=== PATIENT | female | born 1940 | race Caucasian/White ===

== ENCOUNTER → 2016-11-22 | Outpatient (CLI) | payer OTHER ==
[~2016-11-22] MED LIST: ASPEC81 PO; BEANO PO; BND25X PO; CALCIUM CITRATE PO; CHOND PO; COQ10 PO; FLV400 PO; GLUCOSAMINE PO; METHYLCELLULOSE PO; MULT-506 PO; NAPR1TAB9 PO; OMEG10007 PO; TRAM-10 PO; [UNRECOGNIZED DRUG - OTHER] PO
[2016-11-22 13:41] LABS: BLOOD UREA NITROGEN 25 mg/dl (7-18); BUN/CREATININE RATIO 33.8 (10-20); CALCIUM 9.3 mg/dl (8.5-10.1); CARBON DIOXIDE 29 mmol/L (21-32); CHLORIDE 101 mmol/L (98-107); CREATININE 0.73 mg/dl (0.60-1.20); GLUCOSE 115 mg/dl (70-99); POTASSIUM 3.7 mmol/L (3.5-5.1); SODIUM 137 mmol/L (136-145)
--- NOTE | 2016-11-27 10:54 | CODING QUERY MEDICAL NECESSITY ---
SUPPORTING DIAGNOSIS NEEDED A supporting diagnosis is required for the test/procedure performed on this patient in order for us to be reimbursed by the patient's insurance. Please provide a supporting diagnosis for the following test/procedure listed below next to the test name along with your signature. *If there is no additional diagnosis for this patient that would support the following test/procedure please document that below next to the test/procedure. Test(s)/Procedure(s) that require a supporting diagnosis: DOS 11/22 * Vitamin D DIAGNOSIS: Provider Signature: Date: Thank you Elana Tomlin [facility] Information Management Once completed, please kindly fax back to [phone] For questions please call [phone]
== END | disposition home or self-care (01) ==
LOC: C.LABBC 12:02
PROVIDERS: ATTEND Internal Medicine
DX: M85.80 Other specified disorders of bone density and structure, unspecified site (principal)

== ENCOUNTER → 2017-02-19 | Outpatient (CLI) | payer OTHER | END | disposition home or self-care (01) | LOC: C.PAPS 14:32 | PROVIDERS: ATTEND Obstetrics & Gynecology | DX: Z01.419 Encounter for gynecological examination (general) (routine) without abnormal findings (principal); N81.4 Uterovaginal prolapse, unspecified ==

== ENCOUNTER → 2017-05-14 | Outpatient (CLI) | payer OTHER ==
[2017-05-14 15:07] LABS: THYROID STIMULATING HORMONE 1.84 uIu/ml (0.300-4.500)
[2017-05-14 16:32] LABS: LYME DISEASE AB IGG NEG (NEG); LYME DISEASE AB IGM NEG (NEG)
--- NOTE | 2017-05-21 06:37 | CODING QUERY MEDICAL NECESSITY ---
SUPPORTING DIAGNOSIS NEEDED Moses PA, A supporting diagnosis is required for the test/procedure performed on this patient in order for us to be reimbursed by the patient's insurance. Please provide a supporting diagnosis for the following test/procedure listed below next to the test name along with your signature. *If there is no additional diagnosis for this patient that would support the following test/procedure please document that below next to the test/procedure. Test(s)/Procedure(s) that require a supporting diagnosis: * ([id number]) B12 VITAMIN LEVEL DIAGNOSIS: DATE OF SERVICE: 05/14/17 Provider Signature: Date: Thank you Patel [facility] Information Management Once completed, please kindly fax back to [phone] For questions please call [phone]
== END | disposition home or self-care (01) ==
LOC: C.LAB1850 13:01
PROVIDERS: ATTEND Physician Assistant Medical
DX: M79.1 Myalgia (principal); M85.80 Other specified disorders of bone density and structure, unspecified site; M19.90 Unspecified osteoarthritis, unspecified site; R07.9 Chest pain, unspecified

== ENCOUNTER 2024-05-18 01:41 | Inpatient (IN) ==
--- OUTSIDE RECORDS SUMMARY | 2024-05-18 01:48 | External Medical Summary | Summary of Care ---
Author Name Unknown Organization [facility] Address [address] [place] [address] Phone [phone] Care Team Providers Care Computer Numerical Control Programmer Name Role Phone Yovany Díaz MD Primary Care Provider [phone] Encounter Details Date Type Department Care Team (Late st Contact Info) Description 04/20/2024 Orders Only Outcomes Research Department [address], [place] [id number] Ne Keyes [facility] [facility] Other*[id number] Allergies Active Allergy Reactions Criticality Noted Date Comments Amoxicillin 07/08/2014 Rash Ampicillin Rash 06/08/2015 documented as of this encounter (statuses as of 04/20/2024) Medications Medication Sig Dispensed Refills Start Date End Date Status ASPIRIN 81 MG PO TABSIndications:Hyperte nsion goal BP (blood pressure) < 140/90 1 daily Active CITRUCEL 500 MG PO TABS 1 daily A ctive SENIOR MULTIVITAMIN PLUS PO TABSIndications:Osteopo rosis,DJD (degenerative joint disease), multiple sites 1 daily Active BENADRYL 25 MG PO CAPS 1 daily Ac tive BEANO MELTAWAYS PO TBDP 1 daily A ctive NAPROXEN SODIUM 220 MG PO CAPSIndications:DJD (degenerative joint disease), multiple sites 1 daily Active Cholecalciferol (VITAMIN D3) 400 UNITS Capsule Take 800 Units by mouth daily. Active Multiple Minerals-Vitamins (CALCIUM CITRATE +) TABSIndications:Osteopo rosis Take 2 Caps by mouth daily. 05/10/2016 Active alendronate (FOSAMAX) 70 MG TabletIndications:Osteo penia, senile Take 1 Tab by mouth once a week. with 8 oz. water 30 minutes before first meal of the day. Remain upright for 30 min after taking tablet. 13 Tab 3 05/10/2016 Active amLODIPine (NORVASC) 10 MG TabletIndications:Essen tial hypertension with goal blood pressure less than 140/90 Take 1 Tab by mouth daily. 90 Tab 3 05/10/2016 Active lisinopril (PRINIVIL) 5 MG TabletIndications:Essen tial hypertension with goal blood pressure less than 140/90 1 daily 90 Tab 3 05/10/2016 Active documented as of this encounter (statuses as of 04/20/2024) Active Problems Problem Noted Date Diagnosed Date Osteopenia, senile 11/16/2014 Hypertension goal BP (blood pressure) < 140/90 1 DJD (degenerative joint disease), multiple sites 07/08/2014 Family history of breast cancer in mother Overview: onset age 65, mets at age 77 documented as of this encounter (statuses as of 04/20/2024) Resolved Problems Problem Noted Date Diagnosed Date Resolved Date Osteoporosis 07/08/2014 11/16/2014 documented as of this encounter (statuses as of 04/20/2024) Immunizations Name Administration Dates Next Due Pneumococcal Conjugate Vacc, 13 Valent (Prevnar) 05/09/2015 Pneumococcal Polysaccharide PPV23 (Pneumovax) Seasonal Influenza, Split, IIV3, With Preserve, Inj 07/18/2015,07/22/2014 TDAP, Age 7 and older, IM (Adacel) 03/30/2008 Varicella Zoster Vaccine (Adult) 09/30/2006 documented as of this encounter Social History Tobacco Use Types Packs/Day Years Used Date Smoking Tobacco: Never Smokeless Tobacco: Never Alcohol Use Standard Drinks/Week Comments Yes 0 (1 standard drink = 0.6 oz pur e alcohol) occasionally wine with dinner Utilities Answer Date Recorded Do you have trouble paying y our heating, water, or electric bill? (Adult - for ages 18 years and over) Not on file 03/17/2024 Is your family able to pay t he heat, water, or electric bill? (Household - for ages 0-17 years) Not on file 03/17/2024 Does your family have access to good internet? (Household - for ages 0-17 years) Not on file 03/17/2024 Social Connections Answer Date Recorded How often do you feel lonely or isolated from those around you? (Adult - for ages 18 years and over) Not on file 03/17/2024 Sex and Gender Information Value Date Recorded Sex Assigned at Not on file Gender Identity Not on file Sexual Orientation Not on file documented as of this encounter Plan of Treatment Scheduled Orders Name Type Priority Associated Diagnoses Orde r Schedule MYCODE INITIAL ADULT Lab Routine [facility] Other*[id number] Expected: 04/20/2024 (Approximate), Expires: 05/10/2025 Health Maintenance Due Date Last Done Comments Albumin/Creatinine Ratio 1958 Zoster Vaccines (2 of 3) 11/25/2006 09/30/2006 GFR 11/10/2016 11/10/2015, 07/08/2014 Depression Screening 01/09/2017 01/10/2016 DTaP,Tdap,and Td Vaccines (2 - Td or Tdap) 03/30/2018 03/30/2008 DXA Scan 06/05/2019 06/05/2016 Pneumococcal Vaccine: 65+ Years (3 of 3 - PPSV23 or PCV20) 05/09/2020 05/09/2015, 04/30/2007 COVID-19 Vaccine (1 - 2022-2 4 season) 2023 Influenza Vaccine (FLU shot) (#1) 2024 07/18/2015, 07/22/2014 HPV (Gardasil) Vaccine Aged Out No lo nger eligible based on patient's age to complete this topic Hepatitis B Vaccine Aged Out No longe r eligible based on patient's age to complete this topic MENINGOCOCCAL (MENACTRA/MENVEO) Aged Out No longer eligible b ased on patient's age to complete this topic documented as of this encounter Medical Devices Not on filedocumented as of this encounter Visit Diagnoses Diagnosis [facility] Other*[id number] documented in this encounter Care Teams Computer Numerical Control Programmer Relationship Specialty Start Date End Date Yovany Díaz MD PCP - General Internal Medicine 12/26/16 documented as of this encounter
--- NOTE | 2024-05-18 01:59 | Emergency Department Note ---
History of Present Illness General Chief complaint: Illness Stated complaint: VOMITING,DIARRHEA,RECTAL BLEEDING Time Seen by Provider: 05/18/24 01:49 History of Present Illness Maximum Pain Intensity: 10 This 83-year-old female presents ER complaint of nausea, vomiting diarrhea and blood in the stool with lower abdominal cramping since 9:00 tonight. She is on well water. Patient denies recent travel, recent antibiotics, fever, chills, flulike illness, chest pain, dyspnea. She is on a baby aspirin. Home Medications Medication Instructions Recorded Confirmed Type aspirin 81 mg tablet,delayed 81 mg PO QAM 07/29/19 05/18/24 History release carboxymethylcellulose sodium 1 % 1 drops ophthalmic (eye) TID 07/29/19 05/18/24 History eye liquid gel drops (Refresh Liquigel) naproxen sodium 220 mg tablet 220 mg PO UD PRN Pain 07/29/19 05/18/24 History cholecalciferol (vitamin D3) 25 1,000 units PO BID 07/30/19 05/18/24 History mcg (1,000 unit) capsule methylcellulose (laxative) 500 mg 500 mg PO QAM 04/15/20 05/18/24 History tablet (Citrucel) calcium carbonate (Calcium 600) 600 mg PO QAM 10/31/21 05/18/24 History acetaminophen 650 mg 1,300 mg PO UD PRN Pain 08/14/22 04/06/24 History tablet,extended release cyanocobalamin (vitamin B-12) 500 500 mcg PO QAM 08/14/22 05/18/24 History mcg tablet (Vitamin B-12) ibuprofen 200 mg capsule 200 mg PO UD PRN Pain 08/14/22 05/18/24 History atorvastatin 10 mg tablet 10 mg PO HS #90 tabs 02/07/24 05/18/24 Rx alendronate 70 mg tablet (Fosamax) 70 mg PO .weekly #12 tabs 02/10/24 05/18/24 Rx amlodipine 10 mg tablet See Rx Instructions .Route 02/10/24 05/18/24 Rx .COMPLEX #90 tabs lisinopril 5 mg tablet See Rx Instructions .Route 02/10/24 05/18/24 Rx .COMPLEX #90 tabs Iron Tablet 9 mg PO QAM 03/09/24 04/06/24 History diclofenac sodium 1 % topical gel 2 g topical QID PRN Pain 04/06/24 05/18/24 History (Voltaren Arthritis Pain) Allergies Allergy/AdvReac Type Severity Reaction Status Date / Time amoxicillin Allergy Mild Rash Verified 04/06/24 11:28 ampicillin Allergy Mild Rash Verified 04/06/24 11:28 Penicillins Allergy Mild rash Verified 04/06/24 11:28 Past Med/Surg History Problem List (Updated 05/18/24 @ 04:22 by Ne Santiago PA-C) Acute GI bleeding (Acute) Colitis (Acute) Osteoporosis Vitamin D deficiency Cystocele #5 ring pessary with support replaced today 04/26/23 Vaginal discharge Onychomycosis Endometrial cancer (Chronic 01/30/23) Cervical stenosis (uterine cervix) Hematometra Thickened endometrium Enlarged uterus Post-menopausal bleeding Abdominal pain Pelvic mass Encounter for pre-operative examination Anemia Cerebral vascular disease Cervical radiculopathy Nocturnal leg cramps Breast cancer screening Osteoporosis, unspecified Hyperlipidemia LDL goal <70 (Chronic) Abnormal stress test (Chronic) Medical History History of endometrial cancer surgery and radiation History of endometrial biopsy 10/25/22 Presence of pessary IBS (irritable bowel syndrome) Age related osteoporosis Thyroid disease hx hypothyroid/hx med in remote hx Hyperlipidemia Adenomatous colon polyp HX HTN (hypertension) Cervical spondylosis limited rom - continues pt exercises Arthritis of multiple sites Surgical History Nausea and vomiting after administration of anesthetic agent S/P REINALDO-BSO (total abdominal hysterectomy and bilateral salpingo-oophorectomy) Dr. Cuevas [facility] 01/30/23 Hx of cataract extraction left/right History of colonoscopy History of surgical removal of ganglion cyst History of knee surgery hardware intact>right leg History of cholecystectomy History of appendectomy Family History Mother Breast cancer Uterine cancer Father Cardiac disorder Kidney stones Congestive heart failure Prostate cancer Brother No problems noted. Brother No problems noted. Grandfather (Maternal) No problems noted. Grandmother (Maternal) No problems noted. Denies family history of Ovarian cancer Diabetes Myocardial infarction Lung cancer Colorectal cancer Stroke Social History Smoking Status: Never smoker Second Hand Exposure: Yes (as a child); Do You Dip or Chew Tobacco: No; Hx Alcohol Use: Yes Alcohol type: beer, wine and hard liquor Alcohol Intake Frequency: 2-3 x/Week Alcohol Intake Frequency Comment: 3 drinks a wk Preferred Language: Palauan Communication Ability: Effective Visual Impairment: Limited Hearing Ability: Normal Tubing Oiler Required: No Beliefs That Will Affect Care: None marital status: Current Living Situation: Alone current occupational status: retired 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; 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 [employer]; How many Children do You have: 2 Feels Safe at Home: Yes Childhood Exposure to Second-Hand Smoke: Yes (father and mother did smoke ) Diet: low salt caffeine: Yes (coffee and tea, occasional soda ) Dental Care, Regularly: Yes Physical Activity Frequency: 5-6 Times per Week Physical Activity Frequency Comment: walks Seatbelt Use: always Sunscreen Use: Yes Assistive Devices: Glasses Review of Systems A total of 10 systems reviewed and were otherwise negative Physical Exam Vital Signs Vital Signs - 24 hr 05/18/24 01:44 05/18/24 02:07 05/18/24 02:11 Temperature 36.3 C L Temperature Source Temporal Artery Scan Pulse Rate 83 67 67 Pulse Rate [Apical] Respiratory Rate 18 18 Respiratory Effort / Characteristics Respiratory Depth Respiratory Pattern Blood Pressure 153/74 H Blood Pressure [Right Arm] Blood Pressure Mean 100 Blood Pressure Mean [Right Arm] Pulse Oximetry 94 98 Oxygen Delivery Method Room Air Room Air Sepsis Recent Fever Within 48 Hours No Sepsis New/Unexplained Change in Mental Status No Sepsis Action Taken by Nursing No Action Required 05/18/24 02:12 05/18/24 04:00 Temperature Temperature Source Pulse Rate Pulse Rate [Apical] 73 71 Respiratory Rate 18 18 Respiratory Effort / Characteristics Non-Labored Spontaneous Non-Labored Spontaneous Respiratory Depth Normal Normal Respiratory Pattern Regular Regular Blood Pressure Blood Pressure [Right Arm] 155/86 H 148/86 H Blood Pressure Mean Blood Pressure Mean [Right Arm] 109 106 Pulse Oximetry 98 91 Oxygen Delivery Method Room Air Room Air Sepsis Recent Fever Within 48 Hours Sepsis New/Unexplained Change in Mental Status Sepsis Action Taken by Nursing VITALS: Vitals are noted on the nurse's note and reviewed by myself. Vital signs stable. GENERAL: Pleasant female with friend present, in no acute distress, nondiaphoretic, well-developed well-nourished. SKIN: Capillary reflex less than 2 seconds. HEENT: Normocephalic. PERRLA. EOMI. Nares patent. Mucous membranes moist. Neck is supple without nuchal rigidity. HEART: Regular rate and rhythm LUNGS: Clear to auscultation bilaterally without wheezes, rales or rhonchi. No retractions or accessory muscle use. ABDOMEN: Positive bowel sounds x 4. Normal tympanic percussion. Soft, tender to palpation lower abdomen, without masses or organomegaly. Lopez sign negative. No guarding or rebound tenderness. no CVA tenderness Rectal exam: Bright red blood in the vault, hemorrhoid present, learn to swim instructor present. MUSCULOSKELETAL: No gross musculoskeletal defects. NEURO: Patient was alert and oriented to person place and time. No focal neurological deficits. Course Administered Medications Discontinued Medications Acetaminophen (Ofirmev) 1,000 mg in 100 mls @ 400 mls/hr IV NOW STA Stop: 05/18/24 02:09 Last Infusion: 05/18/24 02:45 Dose: Infused Documented By: Admin: 05/18/24 02:14 Dose: 400 mls/hr Documented By: EMB Sodium Chloride (Nss) 250 mls @ 999 mls/hr IV .Q16M ONE Stop: 05/18/24 02:11 Last Infusion: 05/18/24 02:45 Dose: Infused Documented By: Admin: 05/18/24 02:16 Dose: 999 mls/hr Documented By: EMB Sodium Chloride (Nss) 250 mls @ 999 mls/hr IV .Q16M ONE Stop: 05/18/24 04:35 Last Infusion: 05/18/24 04:45 Dose: Infused Documented By: Admin: 05/18/24 04:26 Dose: 999 mls/hr Documented By: MARCELLE Ioversol (Optiray 320 100ml) 100 ml IV ONCE ONE Stop: 05/18/24 02:51 Last Admin: 05/18/24 02:50 Dose: 93 ml Documented By: PRIMITIVO Morphine Sulfate (Morphine Sulfate 2 Mg/Ml Carp) 2 mg IV NOW STA Stop: 05/18/24 04:21 Last Admin: 05/18/24 04:26 Dose: 2 mg Documented By: MARCELLE Morphine Sulfate (Morphine Sulfate 4 Mg/Ml 1 Ml Carp\Vial) 4 mg IV NOW STA Stop: 05/18/24 05:18 Last Admin: 05/18/24 05:20 Dose: 4 mg Documented By: MARCELLE Ondansetron HCl (Ondansetron Inj 2 Mg/Ml 2 Ml Vial) 4 mg IV ONE STA Stop: 05/18/24 01:50 Last Admin: 05/18/24 02:14 Dose: 4 mg Documented By: MARCELLE Medical Decision Making Medical Records Attestation: I reviewed the patient's medical records. Home Medications Current Medication List: was personally reviewed by me Laboratory Data Attestation: I reviewed the patient's lab results. 05/18/24 02:17 05/18/24 02:17 Lab Results 05/18/24 05/18/24 05/18/24 Range/Units 02:17 02:18 02:24 WBC 14.29 H (4.8-10.8) K/ul RBC 5.01 (4.20-5.40) M/uL Hgb 15.2 (12.0-16.0) g/dl POC Hgb 15.6 (12.0-16.0) g/dl Hct 45.2 (37.0-47.0) % POC Hct 46 (37-47) % MCV 90.2 (80.0-100.0) fL MCH 30.3 (25.0-34.0) pg MCHC 33.6 (32.0-36.0) g/dL RDW Std Deviation 43.8 (36.4-46.3) fL RDW Coeff of Ashley 13.3 (11.5-14.5) % Plt Count 177 (130-400) K/uL MPV 10.0 (9.4-12.4) fL Immature Gran % (Auto) 0.6 % Neut % (Auto) 90.0 % Lymph % (Auto) 4.4 % [place] % (Auto) 4.7 % Eos % (Auto) 0.1 % Baso % (Auto) 0.2 % Neut # (Auto) 12.86 H (1.40-6.50) K/uL Lymph # (Auto) 0.63 L (1.20-3.40) K/uL [place] # (Auto) 0.67 H (0.11-0.59) K/uL Eos # (Auto) 0.01 (0.00-0.50) K/uL Baso # (Auto) 0.03 (0.00-0.20) K/uL Immature Gran # (Auto) 0.09 (0.01-0.20) K/uL PT 10.6 (9.0-12.0) Seconds INR 1.0 (0.9-1.1) APTT 24 (21-31) Seconds PTT Ratio 0.9 POC Sodium 141 (135-144) mmol/L Sodium 140 (136-145) mmol/L POC Potassium 3.3 (3.3-5.0) mmol/L Potassium 3.4 L (3.5-5.1) mmol/L POC Chloride 104 (101-112) mmol/L Chloride 104 (98-107) mmol/L Carbon Dioxide 28 (21-32) mmol/L POC Total CO2 26 (24-31) mmol/L Anion Gap 8 (3-11) POC Anion Gap 16.0 (16-25) mmol/L POC BUN 25 H (7-18) mg/dl BUN 27 H (6-23) mg/dl Creatinine 0.68 (0.6-1.2) mg/dl POC Creatinine 0.6 (0.6-1.3) mg/dl Est Cr Clr Drug Dosing 61.2 ml/min Est GFR ( Amer) 95.1 ml/min Est GFR (Non-Af Amer) 82.0 ml/min BUN/Creatinine Ratio 39.7 H (10-20) Glucose 188 H (70-99(Fasting)) mg/dl POC Glucose (other) 184 H (70-99) mg/dl Calcium 9.7 (8.6-10.3) mg/dl POC Ioniz Calcium Haroldo 1.19 (1.12-1.32) mmol/l Magnesium 1.8 (1.7-2.4) mg/dl Total Bilirubin 0.4 (0.2-1.0) mg/dl AST 21 (13-39) U/L ALT 13 (7-52) U/L Alkaline Phosphatase 68 (34-104) U/L Troponin I High Sens 8.1 (0-14) pg/ml Total Protein 7.0 (6.0-8.3) gm/dl Albumin 4.3 (3.4-5.0) gm/dl Globulin 2.7 (2.5-4.0) gm/dl Albumin/Globulin Ratio 1.6 (0.9-2) Lipase 24 (11-82) U/L Stl C. cayetanensis PCR (NotDetected) Stool Rotavirus A PCR (NotDetected) Stl Adenov F 40/41 PCR (NotDetected) Stool Astrovirus (PCR) (NotDetected) Stool Campylobacter PCR (NotDetected) Stl C. diff Tox B Gene (Neg) Stool Cryptosporidium PCR (NotDetected) Stl E.coli Shiga Tox PCR (NotDetected) Stl Enterotoxigenic E PCR (NotDetected) Stool EPEC (PCR) (NotDetected) Stool EAEC (PCR) (NotDetected) Stl E. histolytica PCR (NotDetected) Stool Giardia Lamblia PCR (NotDetected) Stool Salmonella PCR (NotDetected) Stool Sapovirus (PCR) (NotDetected) Stl P. shigelloides PCR (NotDetected) Stl Shigella/EIEC PCR (NotDetected) St Y.enterocolitica PCR (NotDetected) Stool Vibrio (PCR) (NotDetected) Stl Vibrio cholerae PCR (NotDetected) Stl Norovirus GI/GII PCR (NotDetected) Blood Type O Negative Antibody Screen NEGATIVE 05/18/24 Range/Units 04:14 WBC (4.8-10.8) K/ul RBC (4.20-5.40) M/uL Hgb (12.0-16.0) g/dl POC Hgb (12.0-16.0) g/dl Hct (37.0-47.0) % POC Hct (37-47) % MCV (80.0-100.0) fL MCH (25.0-34.0) pg MCHC (32.0-36.0) g/dL RDW Std Deviation (36.4-46.3) fL RDW Coeff of Ashley (11.5-14.5) % Plt Count (130-400) K/uL MPV (9.4-12.4) fL Immature Gran % (Auto) % Neut % (Auto) % Lymph % (Auto) % [place] % (Auto) % Eos % (Auto) % Baso % (Auto) % Neut # (Auto) (1.40-6.50) K/uL Lymph # (Auto) (1.20-3.40) K/uL [place] # (Auto) (0.11-0.59) K/uL Eos # (Auto) (0.00-0.50) K/uL Baso # (Auto) (0.00-0.20) K/uL Immature Gran # (Auto) (0.01-0.20) K/uL PT (9.0-12.0) Seconds INR (0.9-1.1) APTT (21-31) Seconds PTT Ratio POC Sodium (135-144) mmol/L Sodium (136-145) mmol/L POC Potassium (3.3-5.0) mmol/L Potassium (3.5-5.1) mmol/L POC Chloride (101-112) mmol/L Chloride (98-107) mmol/L Carbon Dioxide (21-32) mmol/L POC Total CO2 (24-31) mmol/L Anion Gap (3-11) POC Anion Gap (16-25) mmol/L POC BUN (7-18) mg/dl BUN (6-23) mg/dl Creatinine (0.6-1.2) mg/dl POC Creatinine (0.6-1.3) mg/dl Est Cr Clr Drug Dosing ml/min Est GFR ( Amer) ml/min Est GFR (Non-Af Amer) ml/min BUN/Creatinine Ratio (10-20) Glucose (70-99(Fasting)) mg/dl POC Glucose (other) (70-99) mg/dl Calcium (8.6-10.3) mg/dl POC Ioniz Calcium Haroldo (1.12-1.32) mmol/l Magnesium (1.7-2.4) mg/dl Total Bilirubin (0.2-1.0) mg/dl AST (13-39) U/L ALT (7-52) U/L Alkaline Phosphatase (34-104) U/L Troponin I High Sens (0-14) pg/ml Total Protein (6.0-8.3) gm/dl Albumin (3.4-5.0) gm/dl Globulin (2.5-4.0) gm/dl Albumin/Globulin Ratio (0.9-2) Lipase (11-82) U/L Stl C. cayetanensis PCR Not Detected (NotDetected) Stool Rotavirus A PCR Not Detected (NotDetected) Stl Adenov F 40/41 PCR Not Detected (NotDetected) Stool Astrovirus (PCR) Not Detected (NotDetected) Stool Campylobacter PCR Not Detected (NotDetected) Stl C. diff Tox B Gene Negative Cdiff Gene (Neg) Stool Cryptosporidium PCR Not Detected (NotDetected) Stl E.coli Shiga Tox PCR Not Detected (NotDetected) Stl Enterotoxigenic E PCR Not Detected (NotDetected) Stool EPEC (PCR) Not Detected (NotDetected) Stool EAEC (PCR) Not Detected (NotDetected) Stl E. histolytica PCR Not Detected (NotDetected) Stool Giardia Lamblia PCR Not Detected (NotDetected) Stool Salmonella PCR Not Detected (NotDetected) Stool Sapovirus (PCR) Not Detected (NotDetected) Stl P. shigelloides PCR Not Detected (NotDetected) Stl Shigella/EIEC PCR Not Detected (NotDetected) St Y.enterocolitica PCR Not Detected (NotDetected) Stool Vibrio (PCR) Not Detected (NotDetected) Stl Vibrio cholerae PCR Not Detected (NotDetected) Stl Norovirus GI/GII PCR Not Detected (NotDetected) Blood Type Antibody Screen Imaging Data Attestation: I personally reviewed and interpreted this imaging study as follows: Radiologist's Impression: Abdomen/Pelvis CT 05/18/24 01:49 Exam(s): CT ABDOMEN + PELVIS With Contrast IV Amt: 93 ML OPTIRAY 320 EXAM: CT Abdomen and Pelvis With Intravenous Contrast CLINICAL HISTORY: lower abd pain, GI bleed. TECHNIQUE: Axial computed tomography images of the abdomen and pelvis with intravenous contrast. CTDI is 20.5 mGy and DLP is 884.65 mGy-cm. Automated exposure control was utilized for the study. A dose lowering technique was utilized adhering to the principles of ALARA. CONTRAST: Patient received 93 ML OPTIRAY 320 of IV contrast COMPARISON: No relevant prior studies available. FINDINGS: Lung bases: Unremarkable. No mass. No consolidation. ABDOMEN: Liver: Low attenuation foci in the liver which may be due to cysts but are too small to characterize. Gallbladder and bile ducts: Cholecystectomy. No ductal dilation. Pancreas: Unremarkable. No mass. No ductal dilation. Spleen: Unremarkable. No splenomegaly. Adrenals: Unremarkable. No mass. Kidneys and ureters: Unremarkable. No solid mass. No hydronephrosis. Stomach and bowel: Abnormal concentric mucosal thickening of the entire left-sided colon from the distal transverse colon distally with pericolonic fat stranding. Findings are most consistent with inflammatory or infectious colitis. No active intraluminal contrast extravasation. No bowel obstruction. PELVIS: Appendix: The appendix is not clearly delineated. No secondary findings to suggest acute appendicitis. Bladder: Unremarkable. No mass. Reproductive: Status post hysterectomy. ABDOMEN and PELVIS: Intraperitoneal space: Unremarkable. No free air. No significant fluid collection. Bones/joints: Multilevel degenerative changes throughout the thoracolumbar spine. No acute osseous abnormality. No dislocation. Soft tissues: Unremarkable. Vasculature: The aorta is normal in caliber without dissection or aneurysm. Atherosclerotic calcification noted distally. The superior mesenteric artery, celiac artery and LORNA are patent proximally without critical stenosis or occlusion. Lymph nodes: Unremarkable. No enlarged lymph nodes. IMPRESSION: Abnormal concentric mucosal thickening of the entire left-sided colon from the distal transverse colon distally with pericolonic fat stranding. Findings are most consistent with inflammatory or infectious colitis. No active intraluminal contrast extravasation to suggest a focal location for the GI bleed. No bowel obstruction. No pneumatosis or pneumoperitoneum. Electronically signed by: Zachariah Villanueva MD 05/18/24 04:16 AM [facility] Narrative Prior records/ancillary studies reviewed. Triage Nursing notes reviewed. Additional history obtained from the family. The patient's history was concerning for nausea, vomiting, diarrhea, and abdominal pain. Differential diagnosis: Etiologies such as gastroenteritis, food borne illness, infections, appendicitis, diverticulitis, inflammatory bowel disease, obstruction, GI bleed, biliary pathology, as well as others were entertained. Physical examination findings: As above. Abdominal examination revealed lower abdominal tenderness. Vital signs reviewed and revealed stable. ER treatment provided: IV hydration NSS. Zofran and Tylenol ordered Morphine IV On reassessment the patient felt better. Patient was tolerating p.o. intake. Diagnostics interpretation by me: EKG ordered for abdominal pain EKG: Normal sinus, poor baseline, left anterior fascicular block, rate of 66. Impression normal sinus rhythm poor baseline left anterior fascicular block independently interpreted myself The labs Independently Interpreted by myself revealed leukocytosis, stable H&H, hyperglycemia without DKA Negative C. difficile. Negative stool [employer] Imaging studies: CT as above Consultation: A consultation was placed with the hospitalist. The case was discussed and diagnostics were reviewed. The patient was evaluated in the ER for further treatment. This appears to be consistent with colitis who has been having rectal bleeding. Patient gave a stool sample here that was straight blood. This was sent for analysis. She was still in moderate amount of pain. Medicine was consulted and case is discussed. She will be evaluated for admission.. By the evaluation outlined above emergent etiologies such as appendicitis, diverticulitis, obstruction, cardiac sources, mesenteric ischemia, aortic pathology, inflammatory bowel disease, renal colic, PUD, biliary pathology, UTI, as well as others were deemed relatively unlikely. The pt informed about the findings as listed above. All questions were answered and pleased with the treatment. The chart was completed utilizing [employer] Speech voice recognition software. Grammatical errors, random word insertions, pronoun errors, and incomplete sentences are an occassional consequence of this system due to software limitations, ambient noise, and hardware issues. Any formal questions or concerns about the content, text, or information contained within the body of this dictation should be directly addressed to the physician marketing assistant for clarification. Impression & Plan Colitis, Acute GI bleeding Discharge Plan Visit Data Chief Complaint: Illness Stated Complaint: VOMITING,DIARRHEA,RECTAL BLEEDING ED Provider: Gabby Turcios ED Midlevel Provider: Ne Santiago Discharge Problem: Colitis, Acute GI bleeding Patient Disposition: Admitted As Inpatient Condition: Good Forms Stand Alone Forms: [facility] DNA Guide Prescriptions Prescriptions: No Action diclofenac sodium [Voltaren Arthritis Pain] 1 % gel 2 g topical QID PRN (Reason: Pain) Rx Instructions: apply to single elbow, wrist or hand; for hand includes palm/fingers/back of hand atorvastatin 10 mg tablet 10 mg PO HS Qty: 90 3RF alendronate [Fosamax] 70 mg tablet 70 mg PO .weekly Qty: 12 3RF amlodipine 10 mg tablet See Rx Instructions .ROUTE .COMPLEX Qty: 90 3RF Dose Instruction: TAKE 1 TABLET BY MOUTH ONCE DAILY Patient Comments: qpm Rx Instructions: TAKE 1 TABLET BY MOUTH ONCE DAILY lisinopril 5 mg tablet See Rx Instructions .ROUTE .COMPLEX Qty: 90 3RF Dose Instruction: TAKE ONE TABLET BY MOUTH DAILY Patient Comments: qam Rx Instructions: TAKE ONE TABLET BY MOUTH DAILY aspirin 81 mg tablet,delayed release (DR/EC) 81 mg PO QAM naproxen sodium 220 mg tablet 220 mg PO UD PRN (Reason: Pain) Refresh Liquigel 1 % drops, liquid gel 1 drops OP TID cholecalciferol (vitamin D3) 1,000 unit capsule 1,000 units PO BID Citrucel 500 mg tablet 500 mg PO QAM calcium carbonate [Calcium 600] 600 mg calcium (1,500 mg) tablet 600 mg PO QAM Patient Comments: calcium citrate ibuprofen 200 mg Capsule 200 mg PO UD PRN (Reason: Pain) acetaminophen 650 mg Tablet Extended Release 1,300 mg PO UD PRN (Reason: Pain) cyanocobalamin (vitamin B-12) [Vitamin B-12] 500 mcg Tablet 500 mcg PO QAM Iron Tablet 9 mg PO QAM Referrals Referrals: Tiffany Venegas DO [Primary Care Provider] -
[2024-05-18] MEDS: ACETAMINOPHEN 1,000 MG/100 ML VIAL IV STA (02:14)
[2024-05-18] MEDS: ONDANSETRON INJ 2 MG/ML 2 ML VIAL IV STA (02:14)
[2024-05-18] MEDS: SODIUM CHLORIDE 0.9% 250 ML IV ONE ×2 (02:16→04:26)
[2024-05-18 02:36] LABS: iSTAT Creatinine 0.6 mg/dl (0.6-1.3); iSTAT Hemoglobin 15.6 g/dl (12.0-16.0); iSTAT Ionized Calcium 1.19 mmol/l (1.12-1.32); iSTAT Potassium 3.3 mmol/L (3.3-5.0)
[2024-05-18 02:37] LABS: Basophils # (auto) 0.03 K/uL (0.00-0.20); Basophils % (auto) 0.2 %; Eosinophils # (auto) 0.01 K/uL (0.00-0.50); Eosinophils % (auto) 0.1 %; Hematocrit (blood only) 45.2 % (37.0-47.0); Hemoglobin 15.2 g/dl (12.0-16.0); Immature Granulocytes # (auto) 0.09 K/uL (0.01-0.20); Immature Granulocytes % (auto) 0.6 %; Lymphocytes # (auto) 0.63 K/uL (1.20-3.40); Lymphocytes % (auto) 4.4 %; Mean Corpuscular Hemoglobin 30.3 pg (25.0-34.0); Mean Corpuscular Hgb Conc 33.6 g/dL (32.0-36.0); Mean Corpuscular Volume 90.2 fL (80.0-100.0); Monocytes # (auto) 0.67 K/uL (0.11-0.59); Monocytes % (auto) 4.7 %; Neutrophils # (auto) 12.86 K/uL (1.40-6.50); Platelet Count 177 K/uL (130-400); RDW Coefficient of Variation 13.3 % (11.5-14.5); RDW Standard Deviation 43.8 fL (36.4-46.3); Red Blood Count 5.01 M/uL (4.20-5.40); White Blood Count 14.29 K/ul (4.8-10.8)
[2024-05-18] MEDS: OPTIRAY 320 100ml IV ONE (02:50)
[2024-05-18 02:53] LABS: Albumin Globulin Ratio 1.6 (0.9-2); Albumin Level 4.3 gm/dl (3.4-5.0); BUN Creatinine Ratio 39.7 (10-20); Bilirubin,Total 0.4 mg/dl (0.2-1.0); Calcium 9.7 mg/dl (8.6-10.3); Creatinine Clr Calc Pharmacy 61.2 ml/min; Est GFR (African American) 95.1 ml/min; Globulin 2.7 gm/dl (2.5-4.0); Magnesium 1.8 mg/dl (1.7-2.4); Potassium 3.4 mmol/L (3.5-5.1)
[2024-05-18 02:58] LABS: Troponin I High Sensitivity 8.1 pg/ml (0-14)
[2024-05-18 03:09] LABS: Partial Thromboplastin Ratio 0.9; Partial Thromboplastin Time 24 Seconds (21-31); Prothrombin Time 10.6 Seconds (9.0-12.0)
--- NOTE | 2024-05-18 04:17 | CT Scan Report ---
Exam(s): CT ABDOMEN + PELVIS With Contrast IV Amt: 93 ML OPTIRAY 320 EXAM: CT Abdomen and Pelvis With Intravenous Contrast CLINICAL HISTORY: lower abd pain, GI bleed. TECHNIQUE: Axial computed tomography images of the abdomen and pelvis with intravenous contrast. CTDI is 20.5 mGy and DLP is 884.65 mGy-cm. Automated exposure control was utilized for the study. A dose lowering technique was utilized adhering to the principles of ALARA. CONTRAST: Patient received 93 ML OPTIRAY 320 of IV contrast COMPARISON: No relevant prior studies available. FINDINGS: Lung bases: Unremarkable. No mass. No consolidation. ABDOMEN: Liver: Low attenuation foci in the liver which may be due to cysts but are too small to characterize. Gallbladder and bile ducts: Cholecystectomy. No ductal dilation. Pancreas: Unremarkable. No mass. No ductal dilation. Spleen: Unremarkable. No splenomegaly. Adrenals: Unremarkable. No mass. Kidneys and ureters: Unremarkable. No solid mass. No hydronephrosis. Stomach and bowel: Abnormal concentric mucosal thickening of the entire left-sided colon from the distal transverse colon distally with pericolonic fat stranding. Findings are most consistent with inflammatory or infectious colitis. No active intraluminal contrast extravasation. No bowel obstruction. PELVIS: Appendix: The appendix is not clearly delineated. No secondary findings to suggest acute appendicitis. Bladder: Unremarkable. No mass. Reproductive: Status post hysterectomy. ABDOMEN and PELVIS: Intraperitoneal space: Unremarkable. No free air. No significant fluid collection. Bones/joints: Multilevel degenerative changes throughout the thoracolumbar spine. No acute osseous abnormality. No dislocation. Soft tissues: Unremarkable. Vasculature: The aorta is normal in caliber without dissection or aneurysm. Atherosclerotic calcification noted distally. The superior mesenteric artery, celiac artery and LORNA are patent proximally without critical stenosis or occlusion. Lymph nodes: Unremarkable. No enlarged lymph nodes. IMPRESSION: Abnormal concentric mucosal thickening of the entire left-sided colon from the distal transverse colon distally with pericolonic fat stranding. Findings are most consistent with inflammatory or infectious colitis. No active intraluminal contrast extravasation to suggest a focal location for the GI bleed. No bowel obstruction. No pneumatosis or pneumoperitoneum. Electronically signed by: Zachariah Villanueva MD 05/18/24 04:16 AM
[2024-05-18] MEDS: MoRPHine SULFATE 2 MG/ML CARP IV STA (04:26)
--- NOTE | 2024-05-18 04:55 | History & Physical Report ---
Date of Service May 18, 2024 Assessment & Plan (1) Colitis: Plan: 83yo female presenting with acute onset lower abdominal pain and cramping, bloody diarrhea. CT as above with diffuse colitis noted. Patient presently afebrile, HD stable, labs with leukocytosis WBC=14.29, Hgb=15.2. Stool PCR panel is NEGATIVE for infectious causes. No anion gap. -Admit to medical with telemetry -Ciprofloxacin 400mg IV BID -Flagyl 500mg IV q8 hours -IVF with LR at 80mL/hr x 2L -Zofran as needed -Repeat chemistry and CBC in AM -Tylenol as needed for pain -K repleted - repeat chemistry in AM Plan CHRONIC MEDICAL ISSUES: Hypertension - blood pressure presently acceptable -Continue Lisinopril 5mg po daily -Continue Amlodipine 10mg po daily -Hold for SBP <100 Hyperlipidemia - chronic. stable -Continue Atorvastatin F/E/N - LR at 80mL/hr x 2L, K repleted, repeat chemistry in AM, clear liquids for now Ppx - SCDs Code - Full Dispo - Admit to medical with telemetry History of Present Illness Chief Complaint: bloody diarrhea Primary Care Provider: DO Jackie Corderojordon Alejo is an 83yo female with history of HTN, HLP presenting from home with bloody diarrhea. Patient was in her usual state of health until last night around 21:00 when she developed lower abdominal cramping and diarrhea. She reports that her first bowel movement was normal then progressed to diarrhea then diarrhea with blood. Most recently she has been passing mostly blood, bright red and dark in color and "gelatinous" in consistency. She denies fever, chills, chest pain, cough or shortness of breath. No recent antibiotic use She is on well water at home. In the ER she is afebrile, HD stable ER Course: Tylenol Morphine Zofran NSS Allergies Allergy/AdvReac Type Severity Reaction Status Date / Time amoxicillin Allergy Mild Rash Verified 04/06/24 11:28 ampicillin Allergy Mild Rash Verified 04/06/24 11:28 Penicillins Allergy Mild rash Verified 04/06/24 11:28 Home Medications Medication Instructions Recorded Confirmed Type aspirin 81 mg tablet,delayed 81 mg PO QAM 07/29/19 05/18/24 History release carboxymethylcellulose sodium 1 % 1 drops ophthalmic (eye) TID 07/29/19 05/18/24 History eye liquid gel drops (Refresh Liquigel) naproxen sodium 220 mg tablet 220 mg PO UD PRN Pain 07/29/19 05/18/24 History cholecalciferol (vitamin D3) 25 1,000 units PO BID 07/30/19 05/18/24 History mcg (1,000 unit) capsule methylcellulose (laxative) 500 mg 500 mg PO QAM 04/15/20 05/18/24 History tablet (Citrucel) calcium carbonate (Calcium 600) 600 mg PO QAM 10/31/21 05/18/24 History acetaminophen 650 mg 1,300 mg PO UD PRN Pain 08/14/22 04/06/24 History tablet,extended release cyanocobalamin (vitamin B-12) 500 500 mcg PO QAM 08/14/22 05/18/24 History mcg tablet (Vitamin B-12) ibuprofen 200 mg capsule 200 mg PO UD PRN Pain 08/14/22 05/18/24 History atorvastatin 10 mg tablet 10 mg PO HS #90 tabs 02/07/24 05/18/24 Rx alendronate 70 mg tablet (Fosamax) 70 mg PO .weekly #12 tabs 02/10/24 05/18/24 Rx amlodipine 10 mg tablet See Rx Instructions .Route 02/10/24 05/18/24 Rx .COMPLEX #90 tabs lisinopril 5 mg tablet See Rx Instructions .Route 02/10/24 05/18/24 Rx .COMPLEX #90 tabs Iron Tablet 9 mg PO QAM 03/09/24 04/06/24 History diclofenac sodium 1 % topical gel 2 g topical QID PRN Pain 04/06/24 05/18/24 History (Voltaren Arthritis Pain) Past Med/Surg History Problem List Acute GI bleeding (Acute) Colitis (Acute) Osteoporosis Vitamin D deficiency Cystocele #5 ring pessary with support replaced today 04/26/23 Vaginal discharge Onychomycosis Endometrial cancer (Chronic 01/30/23) Cervical stenosis (uterine cervix) Hematometra Thickened endometrium Enlarged uterus Post-menopausal bleeding Abdominal pain Pelvic mass Encounter for pre-operative examination Anemia Cerebral vascular disease Cervical radiculopathy Nocturnal leg cramps Breast cancer screening Osteoporosis, unspecified Hyperlipidemia LDL goal <70 (Chronic) Abnormal stress test (Chronic) Medical History History of endometrial cancer surgery and radiation History of endometrial biopsy 10/25/22 Presence of pessary IBS (irritable bowel syndrome) Age related osteoporosis Thyroid disease hx hypothyroid/hx med in remote hx Hyperlipidemia Adenomatous colon polyp HX HTN (hypertension) Cervical spondylosis limited rom - continues pt exercises Arthritis of multiple sites Surgical History Nausea and vomiting after administration of anesthetic agent S/P REINALDO-BSO (total abdominal hysterectomy and bilateral salpingo-oophorectomy) Dr. Cuevas [facility] 01/30/23 Hx of cataract extraction left/right History of colonoscopy History of surgical removal of ganglion cyst History of knee surgery hardware intact>right leg History of cholecystectomy History of appendectomy Family History Mother Breast cancer Uterine cancer Father Cardiac disorder Kidney stones Congestive heart failure Prostate cancer Brother No problems noted. Brother No problems noted. Grandfather (Maternal) No problems noted. Grandmother (Maternal) No problems noted. Denies family history of Ovarian cancer Diabetes Myocardial infarction Lung cancer Colorectal cancer Stroke Social History Smoking Status: Never smoker Second Hand Exposure: Yes (as a child); Do You Dip or Chew Tobacco: No; Hx Alcohol Use: Yes Alcohol type: beer, wine and hard liquor Alcohol Intake Frequency: 2-3 x/Week Alcohol Intake Frequency Comment: 3 drinks a wk Preferred Language: Azeri Communication Ability: Effective Visual Impairment: Limited Hearing Ability: Normal Table Filler Required: No Beliefs That Will Affect Care: None marital status: Current Living Situation: Alone current occupational status: retired 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; 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 [employer]; How many Children do You have: 2 Feels Safe at Home: Yes Childhood Exposure to Second-Hand Smoke: Yes (father and mother did smoke ) Diet: low salt caffeine: Yes (coffee and tea, occasional soda ) Dental Care, Regularly: Yes Physical Activity Frequency: 5-6 Times per Week Physical Activity Frequency Comment: walks Seatbelt Use: always Sunscreen Use: Yes Assistive Devices: Glasses Review of Systems Review of Systems: All systems reviewed & are unremarkable except as noted in HPI & below Physical Exam Physical Exam: General: patient resting comfortably, NAD, non-toxic in appearance, AA&O x 4 Skin: warm, dry, intact, no rashes or lesions HEENT: NC/AT, PERRL, EOMI, anicteric sclera, conjunctiva without injection, external ear normal to inspection and nontender, nares patent, moist mucus membranes, dentition intact, no oropharyngeal lesions, neck supple, trachea midline, no LAD, no thyromegaly, no JVD Heart: +S1/S2, regular, no m/r/g Lungs: equal air entry bilaterally, no rales/rhonchi/wheezes Abd: +BS, soft, ND, tender with palpation of the lower abdomen with no rebound/guarding/peritonitis, no masses/organomegaly/ascites Ext: warm, 2+ pulses in UE/LE bilaterally, no clubbing/cyanosis or edema Neuro: nonfocal, patient AA&O x 4, speech intact, no facial droop, moving all extremities on command with equal strength 5/5 Results & Data Results & Data Vital Signs (Past 12 Hours) Vital Signs Temp Pulse Pulse Resp BP BP Pulse Ox 05/18/24 04:00 71 18 148/86 H 91 05/18/24 02:12 73 18 155/86 H 98 05/18/24 02:11 67 18 98 05/18/24 02:07 67 05/18/24 01:44 36.3 C L 83 18 153/74 H 94 O2 Del Method 05/18/24 04:00 Room Air 05/18/24 02:12 Room Air 05/18/24 02:11 Room Air 05/18/24 02:07 05/18/24 01:44 Room Air Laboratory Results Laboratory Results WBC 14.29 K/ul (4.8-10.8) H 05/18/24 02:17 RBC 5.01 M/uL (4.20-5.40) 05/18/24 02:17 Hgb 15.2 g/dl (12.0-16.0) 05/18/24 02:17 POC Hgb 15.6 g/dl (12.0-16.0) 05/18/24 02:24 Hct 45.2 % (37.0-47.0) 05/18/24 02:17 POC Hct 46 % (37-47) 05/18/24 02:24 MCV 90.2 fL (80.0-100.0) 05/18/24 02:17 MCH 30.3 pg (25.0-34.0) 05/18/24 02:17 MCHC 33.6 g/dL (32.0-36.0) 05/18/24 02:17 RDW Std Deviation 43.8 fL (36.4-46.3) 05/18/24 02:17 RDW Coeff of Ashley 13.3 % (11.5-14.5) 05/18/24 02:17 Plt Count 177 K/uL (130-400) 05/18/24 02:17 MPV 10.0 fL (9.4-12.4) 05/18/24 02:17 Immature Gran % (Auto) 0.6 % 05/18/24 02:17 Neut % (Auto) 90.0 % 05/18/24 02:17 Lymph % (Auto) 4.4 % 05/18/24 02:17 Addison % (Auto) 4.7 % 05/18/24 02:17 Eos % (Auto) 0.1 % 05/18/24 02:17 Baso % (Auto) 0.2 % 05/18/24 02:17 Neut # (Auto) 12.86 K/uL (1.40-6.50) H 05/18/24 02:17 Lymph # (Auto) 0.63 K/uL (1.20-3.40) L 05/18/24 02:17 Addison # (Auto) 0.67 K/uL (0.11-0.59) H 05/18/24 02:17 Eos # (Auto) 0.01 K/uL (0.00-0.50) 05/18/24 02:17 Baso # (Auto) 0.03 K/uL (0.00-0.20) 05/18/24 02:17 Immature Gran # (Auto) 0.09 K/uL (0.01-0.20) 05/18/24 02:17 PT 10.6 Seconds (9.0-12.0) 05/18/24 02:17 INR 1.0 (0.9-1.1) 05/18/24 02:17 APTT 24 Seconds (21-31) 05/18/24 02:17 PTT Ratio 0.9 05/18/24 02:17 POC Sodium 141 mmol/L (135-144) 05/18/24 02:24 Sodium 140 mmol/L (136-145) 05/18/24 02:17 POC Potassium 3.3 mmol/L (3.3-5.0) 05/18/24 02:24 Potassium 3.4 mmol/L (3.5-5.1) L 05/18/24 02:17 POC Chloride 104 mmol/L (101-112) 05/18/24 02:24 Chloride 104 mmol/L (98-107) 05/18/24 02:17 Carbon Dioxide 28 mmol/L (21-32) 05/18/24 02:17 POC Total CO2 26 mmol/L (24-31) 05/18/24 02:24 Anion Gap 8 (3-11) 05/18/24 02:17 POC Anion Gap 16.0 mmol/L (16-25) 05/18/24 02:24 POC BUN 25 mg/dl (7-18) H 05/18/24 02:24 BUN 27 mg/dl (6-23) H 05/18/24 02:17 Creatinine 0.68 mg/dl (0.6-1.2) 05/18/24 02:17 POC Creatinine 0.6 mg/dl (0.6-1.3) 05/18/24 02:24 Est Cr Clr Drug Dosing 61.2 ml/min 05/18/24 02:17 Est GFR ( Amer) 95.1 ml/min 05/18/24 02:17 Est GFR (Non-Af Amer) 82.0 ml/min 05/18/24 02:17 BUN/Creatinine Ratio 39.7 (10-20) H 05/18/24 02:17 Glucose 188 mg/dl (70-99(Fasting)) H 05/18/24 02:17 POC Glucose (other) 184 mg/dl (70-99) H 05/18/24 02:24 Calcium 9.7 mg/dl (8.6-10.3) 05/18/24 02:17 POC Ioniz Calcium Haroldo 1.19 mmol/l (1.12-1.32) 05/18/24 02:24 Magnesium 1.8 mg/dl (1.7-2.4) 05/18/24 02:17 Total Bilirubin 0.4 mg/dl (0.2-1.0) 05/18/24 02:17 AST 21 U/L (13-39) 05/18/24 02:17 ALT 13 U/L (7-52) 05/18/24 02:17 Alkaline Phosphatase 68 U/L (34-104) 05/18/24 02:17 Troponin I High Sens 8.1 pg/ml (0-14) 05/18/24 02:17 Total Protein 7.0 gm/dl (6.0-8.3) 05/18/24 02:17 Albumin 4.3 gm/dl (3.4-5.0) 05/18/24 02:17 Globulin 2.7 gm/dl (2.5-4.0) 05/18/24 02:17 Albumin/Globulin Ratio 1.6 (0.9-2) 05/18/24 02:17 Lipase 24 U/L (11-82) 05/18/24 02:17 Stl C. cayetanensis PCR Not Detected (NotDetected) 05/18/24 04:14 Stool Rotavirus A PCR Not Detected (NotDetected) 05/18/24 04:14 Stl Adenov F 40/41 PCR Not Detected (NotDetected) 05/18/24 04:14 Stool Astrovirus (PCR) Not Detected (NotDetected) 05/18/24 04:14 Stool Campylobacter PCR Not Detected (NotDetected) 05/18/24 04:14 Stl C. diff Tox B Gene Negative Cdiff Gene (Neg) 05/18/24 04:14 Stool Cryptosporidium PCR Not Detected (NotDetected) 05/18/24 04:14 Stl E.coli Shiga Tox PCR Not Detected (NotDetected) 05/18/24 04:14 Stl Enterotoxigenic E PCR Not Detected (NotDetected) 05/18/24 04:14 Stool EPEC (PCR) Not Detected (NotDetected) 05/18/24 04:14 Stool EAEC (PCR) Not Detected (NotDetected) 05/18/24 04:14 Stl E. histolytica PCR Not Detected (NotDetected) 05/18/24 04:14 Stool Giardia Lamblia PCR Not Detected (NotDetected) 05/18/24 04:14 Stool Salmonella PCR Not Detected (NotDetected) 05/18/24 04:14 Stool Sapovirus (PCR) Not Detected (NotDetected) 05/18/24 04:14 Stl P. shigelloides PCR Not Detected (NotDetected) 05/18/24 04:14 Stl Shigella/EIEC PCR Not Detected (NotDetected) 05/18/24 04:14 St Y.enterocolitica PCR Not Detected (NotDetected) 05/18/24 04:14 Stool Vibrio (PCR) Not Detected (NotDetected) 05/18/24 04:14 Stl Vibrio cholerae PCR Not Detected (NotDetected) 05/18/24 04:14 Stl Norovirus GI/GII PCR Not Detected (NotDetected) 05/18/24 04:14 Blood Type O Negative 05/18/24 02:18 Antibody Screen NEGATIVE 05/18/24 02:18 Impressions Abdomen/Pelvis CT 05/18/24 01:49 Exam(s): CT ABDOMEN + PELVIS With Contrast IV Amt: 93 ML OPTIRAY 320 EXAM: CT Abdomen and Pelvis With Intravenous Contrast CLINICAL HISTORY: lower abd pain, GI bleed. TECHNIQUE: Axial computed tomography images of the abdomen and pelvis with intravenous contrast. CTDI is 20.5 mGy and DLP is 884.65 mGy-cm. Automated exposure control was utilized for the study. A dose lowering technique was utilized adhering to the principles of ALARA. CONTRAST: Patient received 93 ML OPTIRAY 320 of IV contrast COMPARISON: No relevant prior studies available. FINDINGS: Lung bases: Unremarkable. No mass. No consolidation. ABDOMEN: Liver: Low attenuation foci in the liver which may be due to cysts but are too small to characterize. Gallbladder and bile ducts: Cholecystectomy. No ductal dilation. Pancreas: Unremarkable. No mass. No ductal dilation. Spleen: Unremarkable. No splenomegaly. Adrenals: Unremarkable. No mass. Kidneys and ureters: Unremarkable. No solid mass. No hydronephrosis. Stomach and bowel: Abnormal concentric mucosal thickening of the entire left-sided colon from the distal transverse colon distally with pericolonic fat stranding. Findings are most consistent with inflammatory or infectious colitis. No active intraluminal contrast extravasation. No bowel obstruction. PELVIS: Appendix: The appendix is not clearly delineated. No secondary findings to suggest acute appendicitis. Bladder: Unremarkable. No mass. Reproductive: Status post hysterectomy. ABDOMEN and PELVIS: Intraperitoneal space: Unremarkable. No free air. No significant fluid collection. Bones/joints: Multilevel degenerative changes throughout the thoracolumbar spine. No acute osseous abnormality. No dislocation. Soft tissues: Unremarkable. Vasculature: The aorta is normal in caliber without dissection or aneurysm. Atherosclerotic calcification noted distally. The superior mesenteric artery, celiac artery and LORNA are patent proximally without critical stenosis or occlusion. Lymph nodes: Unremarkable. No enlarged lymph nodes. IMPRESSION: Abnormal concentric mucosal thickening of the entire left-sided colon from the distal transverse colon distally with pericolonic fat stranding. Findings are most consistent with inflammatory or infectious colitis. No active intraluminal contrast extravasation to suggest a focal location for the GI bleed. No bowel obstruction. No pneumatosis or pneumoperitoneum. Electronically signed by: Zachariah Villanueva MD 05/18/24 04:16 AM ECG Additional Comments: EKG per my read with NSR at 66bpm, left axis deviation, KO=935, QRS=94, SWs=484, no acute ischemic changes PG Care Time/CCT Total # of Minutes Spent Total Time Spent with Patient: Total time spent is greater than 50% in coordination of care (as documented) at patient's floor/unit and/or counseling patient: Coding Level of Care Code 39643 INT INP/OBS CARE 2/55MIN Diagnoses Colitis K52.9
[2024-05-18] MEDS: MoRPHine SULFATE 4 MG/ML 1 ML CARP\\VIAL IV STA (05:20)
[2024-05-18 05:49] LABS: Adenovirus F 40/41 PCR Not Detected (NotDetected); Astrovirus PCR Not Detected (NotDetected); Campylobacter PCR Not Detected (NotDetected); Cryptosporidium PCR Not Detected (NotDetected); Cyclospora cayetanensis PCR Not Detected (NotDetected); Entamoeba histolytica PCR Not Detected (NotDetected); Enteroaggregative E.coli(EAEC) Not Detected (NotDetected); Enteropathogenic E.coli (EPEC) Not Detected (NotDetected); Enterotoxigenic E.coli (ETEC) Not Detected (NotDetected); Giardia lamblia PCR Not Detected (NotDetected); Norovirus GI/GII PCR Not Detected (NotDetected); Plesiomonas shigelloides PCR Not Detected (NotDetected); Rotavirus A PCR Not Detected (NotDetected); Salmonella PCR Not Detected (NotDetected); Sapovirus PCR Not Detected (NotDetected); Shiga-like Toxin E.coli (STEC) Not Detected (NotDetected); Shigella/Enteroinvasive E.coli Not Detected (NotDetected); Vibrio cholerae PCR Not Detected (NotDetected); Vibrio species PCR Not Detected (NotDetected); Yersinia enterocolitica PCR Not Detected (NotDetected)
[2024-05-18] MEDS ORDERED: MoRPHine SULFATE 2 MG/ML CARP IV PRN (07:35)
[2024-05-18] MEDS ORDERED: ONDANSETRON INJ 2 MG/ML 2 ML VIAL IV PRN (08:37)
[2024-05-18] MEDS ORDERED: DICLOFENAC SOD 1% GEL 100 GM TUBE EXT PRN (08:37)
[2024-05-18] MEDS: MoRPHine SULFATE 4 MG/ML 1 ML CARP\\VIAL IV PRN (09:02)
[2024-05-18] MEDS: lisinopril 5 MG TAB PO SCH (09:17)
[2024-05-18] MEDS: LACTATED RINGER'S 1,000 ML IV SCH (09:17)
[2024-05-18] MEDS: POTASSIUM CHLORIDE CRTAB 20 MEQ TABCR PO STA (09:17)
--- NOTE | 2024-05-18 09:37 | Electrocardiogram Report ---
Test Reason : Blood Pressure : */* mmHG Vent. Rate : 66 BPM Atrial Rate : 66 BPM P-R Int : 160 ms QRS Dur : 94 ms QT Int : 392 ms P-R-T Axes : -10 -48 10 degrees QTcB Int : 410 ms Normal sinus rhythm Incomplete right bundle branch block Left anterior fascicular block Voltage criteria for left ventricular hypertrophy Possible Old Septal infarct Abnormal ECG When compared with ECG of 14-Apr-2008 16:58, Left anterior fascicular block now present Incomplete right bundle branch block now present Criteria for Septal infarct now present Confirmed by Goran Horvath ([id number]) on 05/18/2024 9:37:36 AM Referred By: REFERRED SELF Confirmed By: Goran Horvath
[2024-05-18] MEDS: metroNIDAZOLE 500 MG/100 ML BAG IV SCH (10:25)
[2024-05-18] MEDS: amLODIPine BESYLATE 5 MG TAB PO SCH (10:25)
[2024-05-18] MEDS: CIPROFLOXACIN / D5W 400 MG/200 ML BAG IV SCH (11:31)
--- NOTE | 2024-05-18 13:49 | Communication Note ---
Date of Service: May 18, 2024 Please refer to the H&P dictated earlier this morning for details of presentation on admission. In brief, 83-year-old female presented with bloody diarrhea and abdominal cramping. Elevated white count found on blood work. CT abdomen showed findings suggestive of colitis. Patient has been started on ciprofloxacin and Flagyl IV. IV fluid. Clear liquid diet. Will monitor for improvement.
[2024-05-18 14:26] LABS: Hematocrit (blood only) 43.4 % (37.0-47.0); Hemoglobin 14.7 g/dl (12.0-16.0)
[2024-05-18] MEDS: SIMETHICONE 40 MG/0.6 ML 30ML PO PRN (15:32)
[2024-05-18] MEDS: ATORVASTATIN 10 MG TAB PO SCH (21:02)
[2024-05-18] MEDS ORDERED: Nursing to Pharmacy Communication SCH (21:45)
[2024-05-18 22:54] LABS: Hematocrit (blood only) 43.1 % (37.0-47.0); Hemoglobin 14.6 g/dl (12.0-16.0)
[2024-05-19 08:29] LABS: Hematocrit (blood only) 40.4 % (37.0-47.0); Hemoglobin 13.7 g/dl (12.0-16.0); Mean Corpuscular Hemoglobin 30.7 pg (25.0-34.0); Mean Corpuscular Hgb Conc 33.9 g/dL (32.0-36.0); Mean Corpuscular Volume 90.6 fL (80.0-100.0); Mean Platelet Volume 10.4 fL (9.4-12.4); Platelet Count 145 K/uL (130-400); RDW Coefficient of Variation 13.8 % (11.5-14.5); RDW Standard Deviation 45.9 fL (36.4-46.3); Red Blood Count 4.46 M/uL (4.20-5.40); White Blood Count 14.97 K/ul (4.8-10.8)
[2024-05-19 08:49] LABS: BUN Creatinine Ratio 33.3 (10-20); Calcium 8.2 mg/dl (8.6-10.3); Creatinine Clr Calc Pharmacy 63.5 ml/min; Est GFR (African American) 99.1 ml/min; Est GFR (Non-African American) 85.5 ml/min; Potassium 4.5 mmol/L (3.5-5.1)
[2024-05-19] MEDS ORDERED: MoRPHine SULFATE 2 MG/ML CARP IV PRN (11:51)
--- NOTE | 2024-05-19 13:01 | Hospitalist Progress Note ---
Date of Service May 19, 2024 Assessment & Plan (1) Colitis: Plan: 83yo female presenting with acute onset lower abdominal pain and cramping, bloody diarrhea. CT as above with diffuse colitis noted. Patient presently afebrile, HD stable, labs with leukocytosis WBC=14.29, Hgb=15.2. Stool PCR panel is NEGATIVE for infectious causes. No anion gap. Clinically improved. Although white count is still high at 14,000. -Ciprofloxacin 400mg IV BID -Flagyl 500mg IV q8 hours Can discontinue IV fluids Advance to full liquid diet -Zofran as needed -Repeat chemistry and CBC in AM -Tylenol as needed for pain -K repleted Discontinue monitor Plan CHRONIC MEDICAL ISSUES: Hypertension - blood pressure presently acceptable -Continue Lisinopril 5mg po daily -Continue Amlodipine 10mg po daily -Hold for SBP <100 Hyperlipidemia - chronic. stable -Continue Atorvastatin Ppx - SCDs Code - Full Likely discharge in a day or 2. Spoke to son on the phone to update him. Admission and Anticipated Discharge Date Admission Date: May 18, 2024 Subjective Patient feels better overall. Says that her pain has improved significantly. She is still passing blood but her diarrhea is better in frequency, consistency and volume. Review of Systems Review of Systems: All systems reviewed & are unremarkable except as noted in Subjective Physical Exam Physical Exam: General: Awake, conversant Heart: S1, S2/regular rate and rhythm, no murmur rubs or gallops Lungs: Clear to auscultation bilaterally. Normal effort Abdomen: Soft/nondistended. Mild tenderness to palpation in the lower abdomen with no rebound, rigidity or guarding. No hepatosplenomegaly Extremities: No clubbing/cyanosis. No edema Behavior: Appropriate, cooperative Results & Data Results & Data Vital Signs (Past 12 Hours) Vital Signs Temp Pulse Pulse Resp BP Pulse Ox O2 Del Method 05/19/24 11:14 37.8 C H 71 18 100/62 92 Room Air 05/19/24 07:44 69 05/19/24 07:35 37.5 C 82 18 109/60 94 Room Air 05/19/24 03:40 36.7 C 72 20 110/62 93 Room Air Laboratory Results Abnormal lab results 05/19/24 Range/Units 07:50 WBC 14.97 H (4.8-10.8) K/ul BUN/Creatinine Ratio 33.3 H (10-20) Glucose 123 H (70-99(Fasting)) mg/dl Calcium 8.2 L (8.6-10.3) mg/dl PG Care Time/CCT Total # of Minutes Spent Total Time Spent with Patient: Total time spent is greater than 50% in coordination of care (as documented) at patient's floor/unit and/or counseling patient: Coding Level of Care Code 10813 SUB INP/OBS CARE 2/35MIN Diagnoses Colitis K52.9
[2024-05-19] MEDS: ACETAMINOPHEN 325 MG TAB PO PRN (23:56)
[2024-05-20 05:08] LABS: Hematocrit (blood only) 35.2 % (37.0-47.0); Hemoglobin 11.8 g/dl (12.0-16.0); Mean Corpuscular Hemoglobin 29.9 pg (25.0-34.0); Mean Corpuscular Hgb Conc 33.5 g/dL (32.0-36.0); Mean Corpuscular Volume 89.3 fL (80.0-100.0); Mean Platelet Volume 10.5 fL (9.4-12.4); Platelet Count 127 K/uL (130-400); RDW Coefficient of Variation 13.6 % (11.5-14.5); RDW Standard Deviation 44.7 fL (36.4-46.3); Red Blood Count 3.94 M/uL (4.20-5.40); White Blood Count 13.43 K/ul (4.8-10.8)
[2024-05-20 05:22] LABS: BUN Creatinine Ratio 24.1 (10-20); Creatinine Clr Calc Pharmacy 65.7 ml/min; Est GFR (African American) 100.2 ml/min; Est GFR (Non-African American) 86.4 ml/min; Potassium 3.7 mmol/L (3.5-5.1)
--- NOTE | 2024-05-20 13:50 | Hospitalist Progress Note ---
Date of Service May 20, 2024 Assessment & Plan (1) Colitis: Plan: 83yo female presenting with acute onset lower abdominal pain and cramping, bloody diarrhea. CT as above with diffuse colitis noted. Patient presently afebrile, HD stable, labs with leukocytosis WBC=14.29, Hgb=15.2. Stool PCR panel is NEGATIVE for infectious causes. No anion gap. Clinically improved. white count slightly improved to 13,000 -Ciprofloxacin 400mg IV BID -Flagyl 500mg IV q8 hours Advance to solid diet -Zofran as needed -Repeat chemistry and CBC in AM -Tylenol as needed for pain -K repleted Discontinued monitor Plan CHRONIC MEDICAL ISSUES: Hypertension - blood pressure presently acceptable -Continue Lisinopril 5mg po daily -Continue Amlodipine 10mg po daily -Hold for SBP <100 Hyperlipidemia - chronic. stable -Continue Atorvastatin Ppx - SCDs Code - Full Likely discharge tomorrow 05/21. Spoke to son on the phone to update him 05/19. Admission and Anticipated Discharge Date Admission Date: May 18, 2024 Subjective Patient feels better overall. Has been having gas pains for which she used Dilaudid yesterday. Review of Systems Review of Systems: All systems reviewed & are unremarkable except as noted in Subjective Physical Exam Physical Exam: General: Awake, conversant Heart: S1, S2/regular rate and rhythm, no murmur rubs or gallops Lungs: Clear to auscultation bilaterally. Normal effort Abdomen: Soft/nondistended. Mild tenderness to palpation in the lower abdomen with no rebound, rigidity or guarding. No hepatosplenomegaly Extremities: No clubbing/cyanosis. No edema Behavior: Appropriate, cooperative Results & Data Results & Data Vital Signs (Past 12 Hours) Vital Signs Temp Pulse Pulse Resp BP Pulse Ox O2 Del Method 05/20/24 07:57 36.6 C 57 L 18 126/69 93 Room Air 05/20/24 07:38 114/68 05/20/24 04:16 36.7 C 65 18 119/64 95 Room Air PG Care Time/CCT Total # of Minutes Spent Total Time Spent with Patient: Total time spent is greater than 50% in coordination of care (as documented) at patient's floor/unit and/or counseling patient: Coding Level of Care Code 72289 SUB INP/OBS CARE 2/35MIN Diagnoses Colitis K52.9
[2024-05-20] MEDS: metroNIDAZOLE 500 MG TAB PO SCH (20:41)
[2024-05-20] MEDS: CIPROFLOXACIN 500 MG TAB PO SCH (20:41)
[2024-05-21 07:41] VITALS: BP 118/68; PULSE 56; RESP 16; TEMP 98.1; O2SAT 94
[2024-05-21 07:45] LABS: Hematocrit (blood only) 37.5 % (37.0-47.0); Hemoglobin 12.4 g/dl (12.0-16.0); Mean Corpuscular Hemoglobin 29.9 pg (25.0-34.0); Mean Corpuscular Hgb Conc 33.1 g/dL (32.0-36.0); Mean Corpuscular Volume 90.4 fL (80.0-100.0); Mean Platelet Volume 10.2 fL (9.4-12.4); Platelet Count 136 K/uL (130-400); RDW Coefficient of Variation 13.3 % (11.5-14.5); Red Blood Count 4.15 M/uL (4.20-5.40); White Blood Count 9.22 K/ul (4.8-10.8)
[2024-05-21 08:18] LABS: BUN Creatinine Ratio 16.1 (10-20); Calcium 8.3 mg/dl (8.6-10.3); Creatinine Clr Calc Pharmacy 73.5 ml/min; Est GFR (African American) 101.3 ml/min; Est GFR (Non-African American) 87.4 ml/min; Potassium 3.6 mmol/L (3.5-5.1)
--- NOTE | 2024-05-21 09:31 | Discharge Summary ---
Date of Service May 21, 2024 Admission HPI Per Admitting Provider Lamar Alejo is an 83yo female with history of HTN, HLP presenting from home with bloody diarrhea. Patient was in her usual state of health until last night around 21:00 when she developed lower abdominal cramping and diarrhea. She reports that her first bowel movement was normal then progressed to diarrhea then diarrhea with blood. Most recently she has been passing mostly blood, bright red and dark in color and "gelatinous" in consistency. She denies fever, chills, chest pain, cough or shortness of breath. No recent antibiotic use She is on well water at home. In the ER she is afebrile, HD stable ER Course: Tylenol Morphine Zofran NSS Admission Exam Per Admitting Provider General: patient resting comfortably, NAD, non-toxic in appearance, AA&O x 4 Skin: warm, dry, intact, no rashes or lesions HEENT: NC/AT, PERRL, EOMI, anicteric sclera, conjunctiva without injection, external ear normal to inspection and nontender, nares patent, moist mucus membranes, dentition intact, no oropharyngeal lesions, neck supple, trachea midline, no LAD, no thyromegaly, no JVD Heart: +S1/S2, regular, no m/r/g Lungs: equal air entry bilaterally, no rales/rhonchi/wheezes Abd: +BS, soft, ND, tender with palpation of the lower abdomen with no rebound/guarding/peritonitis, no masses/organomegaly/ascites Ext: warm, 2+ pulses in UE/LE bilaterally, no clubbing/cyanosis or edema Neuro: nonfocal, patient AA&O x 4, speech intact, no facial droop, moving all extremities on command with equal strength 5/5 Principal Diagnosis - Acute colitis - Acute GI bleed Discharge Exam General: Awake, conversant Heart: S1, S2/regular rate and rhythm, no murmur rubs or gallops Lungs: Clear to auscultation bilaterally. Normal effort Abdomen: Soft/nondistended. Mild tenderness to palpation in the lower abdomen with no rebound, rigidity or guarding. No hepatosplenomegaly Extremities: No clubbing/cyanosis. No edema Behavior: Appropriate, cooperative Discharge Data Allergies Allergy/AdvReac Type Severity Reaction Status Date / Time amoxicillin Allergy Mild Rash Verified 04/06/24 11:28 ampicillin Allergy Mild Rash Verified 04/06/24 11:28 Penicillins Allergy Mild rash Verified 04/06/24 11:28 Consultations 05/18/24 04:21 ED Decision to Admit Stat Ordered Studies 05/18/24 01:49 CT abd pelvis IV con only Stat Hospital Course (1) Colitis: 83yo female presenting with acute onset lower abdominal pain and cramping, bloody diarrhea. CT as above with diffuse colitis noted. Patient presently afebrile, HD stable, labs with leukocytosis WBC=14.29, Hgb=15.2. Stool PCR panel is NEGATIVE for infectious causes. No anion gap. Clinically improved. Leukocytosis resolved Switch from IV Cipro and Flagyl to p.o. Patient is tolerating solid diet Patient is still having some smears of blood with stools. Decided to keep the aspirin on hold until bleeding clears completely. Deemed stable for discharge Plan CHRONIC MEDICAL ISSUES: Hypertension - blood pressure presently acceptable -Continue Lisinopril 5mg po daily -Continue Amlodipine 10mg po daily Hyperlipidemia - chronic. stable -Continue Atorvastatin Ppx - SCDs Code - Full Discharge to home today Total Time Total Time Spent Total Time Spent (In Minutes): 35 Discharge Plan Discharge Items Patient Disposition: Home - Self-Care Reason For Visit: lower gib, colitis Discharge Diagnosis: - Acute colitis - Acute GI bleed Condition on Discharge: Good Activity: Resume your previous activity Non-emergency contact: Primary Care Provider Call non-emergency contact if: you have any medication questions and your symptoms worsen Follow-up/Referrals: Tiffany Venegas DO [Primary Care Provider] - 06/02/24 8:30 am Diet: Heart Healthy Addtl Attending Provider Instructions: - Advised to follow-up with PCP in 1 week Pending Studies at Discharge: No Stand-Alone Forms: My [facility] Medications and DC Order Prescriptions: New ciprofloxacin HCl 500 mg Tablet 500 mg PO BID 4 Days Qty: 8 0RF metronidazole 500 mg Tablet 500 mg PO BID 4 Days Qty: 8 0RF Continued diclofenac sodium [Voltaren Arthritis Pain] 1 % gel 2 g topical QID PRN (Reason: Pain) Rx Instructions: apply to single elbow, wrist or hand; for hand includes palm/fingers/back of hand atorvastatin 10 mg tablet 10 mg PO HS Qty: 90 3RF alendronate [Fosamax] 70 mg tablet 70 mg PO .weekly Qty: 12 3RF amlodipine 10 mg tablet See Rx Instructions .ROUTE .COMPLEX Qty: 90 3RF Dose Instruction: TAKE 1 TABLET BY MOUTH ONCE DAILY Patient Comments: qpm Rx Instructions: TAKE 1 TABLET BY MOUTH ONCE DAILY lisinopril 5 mg tablet See Rx Instructions .ROUTE .COMPLEX Qty: 90 3RF Dose Instruction: TAKE ONE TABLET BY MOUTH DAILY Patient Comments: qam Rx Instructions: TAKE ONE TABLET BY MOUTH DAILY naproxen sodium 220 mg tablet 220 mg PO UD PRN (Reason: Pain) Refresh Liquigel 1 % drops, liquid gel 1 drops OP TID cholecalciferol (vitamin D3) 1,000 unit capsule 1,000 units PO BID Citrucel 500 mg tablet 500 mg PO QAM calcium carbonate [Calcium 600] 600 mg calcium (1,500 mg) tablet 600 mg PO QAM Patient Comments: calcium citrate ibuprofen 200 mg Capsule 200 mg PO UD PRN (Reason: Pain) acetaminophen 650 mg Tablet Extended Release 1,300 mg PO UD PRN (Reason: Pain) cyanocobalamin (vitamin B-12) [Vitamin B-12] 500 mcg Tablet 500 mcg PO QAM Iron Tablet 9 mg PO QAM Held aspirin 81 mg tablet,delayed release (DR/EC) 81 mg PO QAM Hold Instructions: Resume on 05/28/24. Hold until no more blood in stools Discharge Orders: Discharge Order (Routine); Ordered 05/21/24 Ordered By: Sahra Vicente Admission Data Admit Date/Time: 05/18/24 05:03 Attending Provider: Luisa Jorgensen Admit Provider: Luisa Jorgensen Primary Care Provider: Tiffany Venegas Other Providers: Luisa Jorgensen Other Interventions: Discharge Summary Assessment (RN) Last Done: 05/21/24 09:42
== END 2024-05-21 11:40 | disposition home or self-care (01) | DRG 392 ==
LOC: SUATTDRO → ED 01:41 → 2N 05:03 → 3N 05-20 18:21